=== PATIENT | male | born 1970 | race Caucasian/White ===

== ENCOUNTER 2019-07-20 08:02 | Emergency (ER) | payer SELFPAY ==
[2019-07-20] VITALS (15 sets, daily range): BP systolic 120–147; BP diastolic 72–95; PULSE 71–92; RESP 16–18; TEMP 37.1; O2SAT 94–99
--- NOTE | 2019-07-20 08:09 | ED_ITS ---
Entered by Travis Moya LPN, acting as scribe for HPI - Back Pain/Injury General: Chief Complaint: Abdominal Pain Stated Complaint: back/abd pain Time Seen by Provider: 07/20/19 08:07 Source: patient Mode of arrival: ambulatory Limitations: no limitations History of Present Illness: HPI Narrative: 49 yo male presents with c/o right lower back pain radiating to his right groin that started yesterday. He reports a BM might ease the pain some, then he becomes nauseated after a BM. He has had 2 episodes of emesis. He denies pain or burning with urination, denies hematuria. He does have h/o kidney stones on the left side, Lithotripsy x2. MD elicited complaint: back pain (right lower back) Onset (ago): day(s) (1) Quality: sharp Radiation: groin (right) Exacerbating factors: none Relieving factors: other (brief relief with BM) Context: history of kidney stones Associated symptoms: Reports nausea and vomiting; Deny chills, dysuria, fatigue, fever(s) or hematuria Review of Systems Const: Denies: fever, chills, body aches, change in appetite, fatigue or malaise ENMT: Denies: throat pain, ear pain, nasal discharge or nasal congestion Card: Denies: chest pain, edema, shortness of breath on exertion or shortness of breath when lying down Resp: Denies: shortness of breath, productive cough or non-productive cough GI: Reports: nausea and vomiting : Denies: painful urination or blood in urine Skin/Breast: Denies: rash or itching PFSH ED PFSH: Statuses (acute, chronic, etc) shown below reflect problem list status as previously entered and may not be historically accurate Medical History History of stroke (Acute) Vasectomy evaluation (Acute) Surgical History H/O lithotripsy (Acute) H/O neck surgery (Acute) History of back surgery (Acute) Hx of cholecystectomy (Acute) Family History Father , AT AGE 71 STROKE Stroke Social History Smoking and tobacco status: never smoked Alcohol intake: never Adopted: Yes Caregiver/support person: No Lives independently: Yes Marital status: / Current occupational status: employed 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 Physical Exam Const: COMMON NORMALS: no apparent distress GENERAL APPEARANCE: cooperative and comfortable ORIENTATION/CONSCIOUSNESS: Yes awake, Yes oriented to person, Yes oriented to place and Yes oriented to time HENMT: COMMON NORMALS: normocephalic, head/scalp atraumatic, hearing grossly normal bilaterally, external ears normal, EAC's normal, TM's normal bilaterally, nasal mucous membranes and turbinates normal, moist oral mucous membranes and oropharynx normal HEAD & SCALP: normocephalic and atraumatic NOSE: nasal mucous membranes and turbinates normal EXTERNAL EAR: Yes external ears normal EXTERNAL AUDITORY CANAL: EAC's normal TYMPANIC MEMBRANE: TM's normal bilaterally Eye: COMMON NORMALS: PERRL, EOMs intact bilaterally, conjunctivae normal and no scleral icterus CONJUNCTIVA: Yes conjunctivae normal PUPIL: Yes PERRL Neck/C-Spine: COMMON NORMALS: full ROM, no lymphadenopathy, supple and no JVD Lymph: LYMPHATIC: no lymphadenopathy noted and no lymphedema noted Resp: COMMON NORMALS: normal respiratory effort, no retractions, no use of accessory muscles and clear to auscultation bilaterally AUSCULTATION: clear to auscultation bilaterally Cardio: COMMON NORMALS: no JVD, regular rate, regular rhythm and no murmurs RATE: regular rate RHYTHM: regular rhythm GI: COMMON NORMALS: soft to palpation and no hepatosplenomegaly PALPATION: Yes soft, Yes tender (mild epigastric, right side abd tenderness), No guarding, No rigid and Yes no hepatosplenomegaly : BLADDER/KIDNEY EXAM: Yes CVA tenderness Back/Pelvis: GENERAL BACK: Yes CVA tenderness CVA tenderness: right Extremity: COMMON NORMALS: normal to inspection, normal capillary refill, no clubbing, cyanosis or edema, no calf tenderness and no pedal edema Neuro: SENSORIUM/ORIENTATION: Yes oriented to person, Yes oriented to place and Yes oriented to time Skin: COMMON NORMALS: no rashes or lesions noted GENERAL SKIN EXAM: no rashes or lesions noted Course Vital Signs: Vital signs: Vital Signs Temperature 98.7 F 01/11/20 08:06 Pulse Rate 80 07/20/19 12:09 Respiratory Rate 18 07/20/19 12:09 Blood Pressure 142/92 07/20/19 12:09 Pulse Oximetry 97 07/20/19 12:09 MDM - Back Pain/Injury Lab Data: Labs: Lab Results 07/20/19 07/20/19 07/20/19 Range/Units 08:15 08:15 08:50 WBC 10.1 H (4.0-10.0) 10^3/ uL RBC 5.00 (4.1-5.3) 10^6/u L Hgb 15.4 (11.7-16.6) g/dL Hct 45.1 (42.0-52.0) % MCV 90.2 (80-94) fL MCH 30.8 (28.0-34.0) pg MCHC 34.1 (30.0-36.0) g/dL RDW 12.0 L (12.1-15.1) % Plt Count 251 (130-400) 10^3/c mm MPV 9.1 (7.4-10.4) fL Neut % (Auto) 85.5 % Lymph % (Auto) 7.6 % Fountain % (Auto) 5.8 % Eos % (Auto) 0.3 % Baso % (Auto) 0.5 % Neut # (Auto) 8.7 H (1.8-7.7) 10^3/u L Lymph # (Auto) 0.8 (0.8-4.8) 10^3/u L Fountain # (Auto) 0.6 (0.2-0.9) 10^3/u L Eos # (Auto) 0.0 (0.0-0.8) 10^3/u L Baso # (Auto) 0.1 (0.0-0.1) 10^3/u L Nucleated RBC % (a uto) 0 % Nucleated RBCs # 0.0 /100WBC Sodium 134 L (136-145) mmol/L Potassium 4.3 (3.5-5.1) mmol/L Chloride 98 (98-107) mmol/L Carbon Dioxide 27 (22-29) mmol/L Anion Gap 13.3 (5-19) BUN 13 (6-20) mg/dL Creatinine 1.1 (0.7-1.2) mg/dL GFR Calculation 70.6 L (90-130) mL/min Glucose 125 H (74-109) mg/dL Calcium 10.1 H (8.6-10.0) mg/Dl Total Bilirubin 0.4 (0.15-1.2) mg/dL AST 20 (0-40) U/L ALT 13 (0-41) U/L Alkaline Phosphata se 92 (40-130) IU/L Total Protein 7.4 (6.6-8.7) g/dL Albumin 4.3 (3.5-5.2) g/dL Globulin 3.1 (1.3-4.6) g/dL Lipase 29 (13-60) U/L Urine Color Yellow (Yellow) Urine Appearance Hazy A (CLEAR) Urine pH 8 H (5-7) Ur Specific Gravit y 1.010 (1.005-1.030) Urine Protein Neg (Negative) Urine Glucose (UA) Norm (Normal) Urine Ketones Negative (Negative) Urine Occult Blood Trace H (Negative) Urine Nitrate Negative (Negative) Urine Bilirubin Neg (NEGATIVE) Prot Sulfosalicyli c Acd Negative Urine Urobilinogen Norm (Negative) mg/dL Ur Leukocyte Diamante ase Negative (Negative) Urine RBC 0-4 H (0-2) /hpf Urine WBC None (0-5) /hpf Ur Squamous Epith Cells None (0-5) Amorphous Sediment 2+ Urine Bacteria Trace (NONE) Imaging Data^: KUB: Radiologist's impression: [address] [address] XRay Report Signed Patient: Suhail Sarah Sr #: [id number] : 1970Acct#:[id number] Age/Sex: 49 / MADM Date: 07/20/19 Loc: ERRoom/Bed: Attending Dr: Ordering Provider/Ordering MD: Raj Arevalo DO Date of Service: 07/20/19 Procedure(s): XR KUB portable [id number] Accession Number(s): [id number] Report Number: [id number] PROCEDURE INFORMATION: Exam: XR Abdomen, 1 View Exam date and time: 07/20/2019 9:10 AM Age: 49 years old Clinical indication: Abdominal pain and other: Flank; Generalized; Prior surgery; Surgery date: 6+ months; Surgery type: Gastric sleeve, gallbladder; Additional info: Abd/flank pain TECHNIQUE: Imaging protocol: XR of the abdomen. Views: Frontal supine view of the abdomen. 1 View. COMPARISON: No relevant prior studies available. FINDINGS: Gastrointestinal tract: Normal. No bowel dilation. Organs: Surgical clips in the gallbladder fossa consistent with cholecystectomy. Bones/joints: Dextroscoliosis. Metallic fixation over the lumbosacral spine. XR/XR KUB portable [id number] IMPRESSION: No acute findings. Dictated By:Aaron Orellana MD CT Abd/Pel: Radiologist's impression: Patient: Suhail Sarah Sr #: [id number] : 1970Acct#:[id number] Age/Sex: 49 / MADM Date: 07/20/19 Loc: ERRoom/Bed: Attending Dr: Ordering Provider/Ordering MD: Raj Arevalo DO Date of Service: 07/20/19 Procedure(s): CT abdomen pelvis w con* [id number] Accession Number(s): [id number] Report Number: [id number] PROCEDURE INFORMATION: Exam: CT Abdomen And Pelvis With Contrast Exam date and time: 07/20/2019 10:09 AM Age: 49 years old Clinical indication: Abdominal pain; Flank; Right; Prior surgery; Surgery date: 6+ months; Surgery type: Gb, appy back; Additional info: Abd pain TECHNIQUE: Imaging protocol: Computed tomography of the abdomen and pelvis with intravenous contrast. Total DLP: 1129.33 mGy-cm Radiation optimization: All CT scans at this facility use at least one of these dose optimization techniques: automated exposure control; mA and/or kV adjustment per patient size (includes targeted exams where dose is matched to clinical indication); or iterative reconstruction. Contrast material: OMNI 300; Contrast volume: 95 ml; Contrast route: RT AC; COMPARISON: CR XR KUB portable [id number] 07/20/2019 8:58 AM FINDINGS: Liver: Normal. No mass. Gallbladder and bile ducts: Surgical clips in the gallbladder fossa consistent with cholecystectomy. Dilated 8 mm common hepatic duct with normal common bile duct. Pancreas: Normal. No ductal dilation. Spleen: Normal. No splenomegaly. Adrenals: Normal. No mass. Kidneys and ureters: 5 x 3 mm distal right obstructing ureteral stone, 4 cm proximal to the UVJ, with moderate right hydronephrosis. Stomach and bowel: Gastric sleeve surgery. Appendix: Normal appendix. Intraperitoneal space: Unremarkable. No free air. No significant fluid collection. Vasculature: Calcification of the abdominal aorta and/or iliac arteries consistent with atherosclerotic vessel disease. One or more calcified pelvic phleboliths. Lymph nodes: Unremarkable. No enlarged lymph nodes. Bladder: Unremarkable as visualized. Reproductive: Nonspecific prostate calcifications. Bones/joints: Stable postoperative changes over the lumbar spine. Soft tissues: Unremarkable. CT/CT abdomen pelvis w con* [id number] IMPRESSION: 5 x 3 mm distal right obstructing ureteral stone, 4 cm proximal to the UVJ, with moderate right hydronephrosis. Radiation Dose CTDIVOL = (mGy): DLP = 1129.33 (mGy-cm) Dictated By:Aaron Orellana MD Discharge Plan Discharge Patient Disposition: Home, Self-Care Clinical Impression: Ureterolithiasis Condition: Stable Prescriptions: [place] 5-325 mg tablet 1 tab PO Q6H PRN (Reason: pain) Qty: 20 RF: 0 Flomax 0.4 mg capsule 0.4 mg PO Q24H Qty: 14 RF: 0 Zofran 4 mg tablet 4 mg PO DAILY PRN (Reason: nausea and vomiting) 5 Days Qty: 20 RF: 0 No Action diazepam 10 mg tablet 10 mg PO ONCE PRN (Reason: Preoperatively 1 hour before vasectomy) Qty: 1 RF: 0 Discharge Orders: Discharge Order (Routine); Ordered 07/20/19 Ordered By: Raj Arevalo Referrals: Mayito Mas MD [Physician] - 4-7 days (ureterolithiasis) OUT OF AREA PROVIDERS, [Primary Care Provider] - Discharge Diet: Usual diet Discharge Activity: Resume usual activity Activity Restrictions/Additional Instructions: district branch manager will call with appointment with urology. Strain urine for stone return to the lab for analysis. Discharge Date/Time: 07/20/19 12:13 Coding Level of Care Code ED Brass Burnisher for Chg Fwd Exam Problem Focused The documentation recorded by the Griffin trevino Dani Elizabeth, LPN, accurately reflects the service I personally performed and the decisions made by me, Raj Arevalo, DO
--- NOTE | 2019-07-20 08:13 | XRR_ITS ---
PROCEDURE INFORMATION: Exam: XR Abdomen, 1 View Exam date and time: 07/20/2019 9:10 AM Age: 49 years old Clinical indication: Abdominal pain and other: Flank; Generalized; Prior surgery; Surgery date: 6+ months; Surgery type: Gastric sleeve, gallbladder; Additional info: Abd/flank pain TECHNIQUE: Imaging protocol: XR of the abdomen. Views: Frontal supine view of the abdomen. 1 View. COMPARISON: No relevant prior studies available. FINDINGS: Gastrointestinal tract: Normal. No bowel dilation. Organs: Surgical clips in the gallbladder fossa consistent with cholecystectomy. Bones/joints: Dextroscoliosis. Metallic fixation over the lumbosacral spine. XR/XR KUB portable [id number] IMPRESSION: No acute findings.
[2019-07-20] MEDS: morphine 4 mg/mL SDV 1 mL IVP ×2 (08:23→11:26)
[2019-07-20] MEDS: ondansetron 2 mg/ML SDV 2 mL 4 MG IVP (08:23)
[2019-07-20 08:24] LABS: Basophils # 0.1 10^3/uL (0.0-0.1); Basophils % 0.5 %; Eosinophils % 0.3 %; Hematocrit 45.1 % (42.0-52.0); Hemoglobin 15.4 g/dL (11.7-16.6); Lymphocytes # 0.8 10^3/uL (0.8-4.8); Lymphocytes % 7.6 %; Mean Corpuscular HGB Conc 34.1 g/dL (30.0-36.0); Mean Corpuscular Hemoglobin 30.8 pg (28.0-34.0); Mean Corpuscular Volume 90.2 fL (80-94); Mean Platelet Volume 9.1 fL (7.4-10.4); Monocytes # 0.6 10^3/uL (0.2-0.9); Monocytes % 5.8 %; Neutrophils # 8.7 10^3/uL (1.8-7.7); Neutrophils % 85.5 %; Nucleated Red Blood Cells % 0 %; Platelet Count 251 10^3/cmm (130-400); White Blood Count 10.1 10^3/uL (4.0-10.0)
[2019-07-20] MEDS: sodium chloride 0.9% 1,000 ML 999 ML IV (08:24)
[2019-07-20 08:43] LABS: Alanine Aminotransferase 13 U/L (0-41); Albumin Level 4.3 g/dL (3.5-5.2); Alkaline Phosphatase 92 IU/L (40-130); Anion Gap 13.3 (5-19); Aspartate Amino Transferase 20 U/L (0-40); Blood Urea Nitrogen 13 mg/dL (6-20); Calcium 10.1 mg/Dl (8.6-10.0); Carbon Dioxide 27 mmol/L (22-29); Chloride 98 mmol/L (98-107); Globulin 3.1 g/dL (1.3-4.6); Glomerular Filtration Rate 70.6 mL/min (90-130); Glucose 125 mg/dL (74-109); Lipase 29 U/L (13-60); Potassium 4.3 mmol/L (3.5-5.1); Sodium 134 mmol/L (136-145); Total Bilirubin 0.4 mg/dL (0.15-1.2); Total Protein 7.4 g/dL (6.6-8.7)
[2019-07-20 09:19] LABS: Add Urine Microscopic? YES; Bilirubin Urine Neg (NEGATIVE); Blood Urine Trace (Negative); Glucose Urine UA Norm (Normal); Ketones Urine Negative (Negative); Leukocyte Esterase Urine Negative (Negative); Nitrate Urine Negative (Negative); Protein Urine Neg (Negative); Sulfosalicylic Acid Urine Negative; Urine Appearance Hazy (CLEAR); Urine Color Yellow (Yellow); Urobilinogen Urine Norm (Negative); pH Urine 8 (5-7)
[2019-07-20 09:20] LABS: Amorphous Sediment Urine 2+; Bacteria Urine TRACE; RBC Urine 0-4 /hpf (0-2)
[2019-07-20 09:21] LABS: Add Urine Culture? No
--- NOTE | 2019-07-20 09:46 | CTR_ITS ---
PROCEDURE INFORMATION: Exam: CT Abdomen And Pelvis With Contrast Exam date and time: 07/20/2019 10:09 AM Age: 49 years old Clinical indication: Abdominal pain; Flank; Right; Prior surgery; Surgery date: 6+ months; Surgery type: Gb, appy back; Additional info: Abd pain TECHNIQUE: Imaging protocol: Computed tomography of the abdomen and pelvis with intravenous contrast. Total DLP: 1129.33 mGy-cm Radiation optimization: All CT scans at this facility use at least one of these dose optimization techniques: automated exposure control; mA and/or kV adjustment per patient size (includes targeted exams where dose is matched to clinical indication); or iterative reconstruction. Contrast material: OMNI 300; Contrast volume: 95 ml; Contrast route: RT AC; COMPARISON: CR XR KUB portable [id number] 07/20/2019 8:58 AM FINDINGS: Liver: Normal. No mass. Gallbladder and bile ducts: Surgical clips in the gallbladder fossa consistent with cholecystectomy. Dilated 8 mm common hepatic duct with normal common bile duct. Pancreas: Normal. No ductal dilation. Spleen: Normal. No splenomegaly. Adrenals: Normal. No mass. Kidneys and ureters: 5 x 3 mm distal right obstructing ureteral stone, 4 cm proximal to the UVJ, with moderate right hydronephrosis. Stomach and bowel: Gastric sleeve surgery. Appendix: Normal appendix. Intraperitoneal space: Unremarkable. No free air. No significant fluid collection. Vasculature: Calcification of the abdominal aorta and/or iliac arteries consistent with atherosclerotic vessel disease. One or more calcified pelvic phleboliths. Lymph nodes: Unremarkable. No enlarged lymph nodes. Bladder: Unremarkable as visualized. Reproductive: Nonspecific prostate calcifications. Bones/joints: Stable postoperative changes over the lumbar spine. Soft tissues: Unremarkable. CT/CT abdomen pelvis w con* [id number] IMPRESSION: 5 x 3 mm distal right obstructing ureteral stone, 4 cm proximal to the UVJ, with moderate right hydronephrosis. Radiation Dose CTDIVOL = (mGy): DLP = 1129.33 (mGy-cm)
[2019-07-20] MEDS: iohexol 300 mg/mL 100 mL Btl IV (11:22)
--- NOTE | 2019-07-22 12:10 | DCPLANNER ---
payroll accounting manager had message to schedule a follow up appointment for patient with Dr. Mas. payroll accounting manager called the office of Dr. Mas, spoke with Ligia, gave clinic patients information. payroll accounting manager was told that patients information would be printed and given to Micaela. Clinic will call patient with appointment information. payroll accounting manager will call for appointment information.
--- NOTE | 2019-07-23 14:50 | DCPLANNER ---
A follow up appointment had been scheduled for patient for 07.22.[address] Mas. Patient did attend the appointment.
== END 2019-07-20 12:13 | disposition home or self-care (01) ==
PROVIDERS: Emergency Provider Family Medicine
DX: N20.1 Calculus of ureter (principal); Z86.73 Personal history of transient ischemic attack (TIA), and cerebral infarction without residual deficits
CPT/HCPCS: 74018; 74177; 80053; 81003; 83690; 85025; 96360; 96374; 96375; 99282; A9270; J2270; J2405; J7030; Q9967

== ENCOUNTER 2019-07-22 14:49 | Outpatient (CLI) | payer SELFPAY ==
--- NOTE | 2019-07-22 15:11 | XR_ITS ---
WS: [id number] KUB, 07/22/2019 Clinical Data: ureterolithiasis Comparison: KUB, 07/20/2019. Findings: No abnormal intraabdominal masses or calcifications are seen. There is no dilatated small bowel or ev idence of obstruction. There are clips in right upper quadrant from a cholecystectomy. The patient has had a fusion of L5-S1 . XR/XR KUB [id number] Impression: Negative KUB.
== END 2019-07-22 14:50 | disposition home or self-care (01) ==
LOC: RAD 14:54
PROVIDERS: Visit Provider Urology
DX: N20.1 Calculus of ureter (principal)
CPT/HCPCS: 74018; 81001

== ENCOUNTER 2019-08-05 07:27 | Outpatient (CLI) | payer SELFPAY ==
--- NOTE | 2019-08-05 07:30 | XRR_ITS ---
PROCEDURE INFORMATION: Exam: XR Abdomen, 1 View Exam date and time: 08/05/2019 7:43 AM Age: 49 years old Clinical indication: Condition or disease; Other: Ureterolithiasis; Prior surgery; Surgery date: 6+ months; Surgery type: Gastric sleeve, gallbladder TECHNIQUE: Imaging protocol: XR of the abdomen. Views: Frontal supine view of the abdomen. 1 View. COMPARISON: CR XR KUB [id number] 07/22/2019 3:50 PM FINDINGS: Gastrointestinal tract: Unremarkable. No bowel dilation. Intraperitoneal space: Medial LEFT upper quadrant abdominal surgical stapling. Organs: The gallbladder is likely surgically absent, with metallic clips overlying the gallbladder fossa. Bones/joints: Upper sacral spinal anterior fixation hardware. Right lateral acetabular mild marginal hypertrophy. XR/XR KUB [id number] IMPRESSION: 1. Prior cholecystectomy. 2. LEFT upper quadrant abdominal postsurgical changes. 3. No acute abdominal or pelvic abnormality identified.
== END 2019-08-05 07:28 | disposition home or self-care (01) ==
LOC: RAD 07:30
PROVIDERS: PCP Urology; Visit Provider Urology
DX: N20.1 Calculus of ureter (principal); Z98.84 Bariatric surgery status; Z90.49 Acquired absence of other specified parts of digestive tract
CPT/HCPCS: 74018; 81001

== ENCOUNTER 2019-08-22 07:05 | Outpatient (CLI) | payer SELFPAY ==
--- NOTE | 2019-08-22 07:15 | XRR_ITS ---
PROCEDURE INFORMATION: Exam: XR Abdomen, 1 View Exam date and time: 08/22/2019 7:21 AM Age: 49 years old Clinical indication: Condition or disease; Kidney or ureter condition; Calculus (stone) in kidney; Prior surgery; Surgery type: Lspine, gastric sleeve; Additional info: Renal calculi follow up TECHNIQUE: Imaging protocol: XR of the abdomen. Views: Frontal supine view of the abdomen. 1 View. COMPARISON: XR ABDOMEN 08/05/2019 7:[address] ABDOMEN/PELVIS 07/20/2019 11:34 AM XR ABDOMEN 07/20/2019 8:58:49 AM FINDINGS: Gastrointestinal tract: No dilated gas-filled loops of bowel. Intraperitoneal space: When comparing the different studies there appears to be a calculus in the distal right ureter. The calculus measures approximately 6 mm x 2.5 mm in size, not accounting for magnification. Organs: Prior cholecystectomy. Bones/joints: Prior anterior fusion at L5-S1. XR/XR KUB 57475 IMPRESSION: Distal right ureteral calculus.
== END 2019-08-22 07:06 | disposition home or self-care (01) ==
PROVIDERS: PCP Urology; Visit Provider Urology
DX: N20.0 Calculus of kidney (principal); N20.1 Calculus of ureter
CPT/HCPCS: 74018; 81001

== ENCOUNTER 2019-09-09 06:43 | Outpatient (CLI) | payer SELFPAY ==
--- NOTE | 2019-09-09 07:15 | XR_ITS ---
WS: [id number] XR KUB [id number] REASON FOR EXAM: RIGHT URETERAL CALCULUS FINDINGS: A calcified density is seen in the region of the distal right ureter. Weren't sure if this is a stone or soft tissue calcification. The kidneys do not appear to be grossly dilated. There is evidence of fusion of the L5-S1 junction inferiorly. XR/XR KUB 68129 IMPRESSION: Calcification unchanged in the region of the distal right ureter. Not sure if t his is a renal calculus or soft tissue calcification.
== END 2019-09-09 06:44 | disposition home or self-care (01) ==
PROVIDERS: PCP Urology; Visit Provider Urology
DX: N20.1 Calculus of ureter (principal)
CPT/HCPCS: 74018; 81001

== ENCOUNTER 2019-09-20 09:11 | Outpatient (CLI) | payer SELFPAY ==
--- NOTE | 2019-09-20 09:15 | XR_ITS ---
WS: [id number] KUB, 09/20/2019 Clinical Data: ureteral calculus Comparison: KUB, 09/09/2019. Findings: There is a small calcification in the right side of the true pelvis which may represent a distal uret eral stone. No renal calculi are seen. The patient has had an L5-S1 fusion. XR/XR KUB 30760 Impression: No change in possible distal right ureteral calculus.
== END 2019-09-20 09:12 | disposition home or self-care (01) ==
PROVIDERS: PCP Urology; Visit Provider Urology
DX: N20.1 Calculus of ureter (principal)
CPT/HCPCS: 74018; 81001

== ENCOUNTER 2019-09-27 09:55 | Day surgery (SDC) | payer SELFPAY ==
[2019-09-26 12:12] VITALS: BMI 29.5
[2019-09-27] VITALS (8 sets, daily range): BP systolic 137–162; BP diastolic 84–98; PULSE 74–90; RESP 16–22; TEMP 36.1–36.8; O2SAT 95–98
--- NOTE | 2019-09-27 10:17 | XR_ITS ---
WS: [id number] XR KUB [id number] REASON FOR EXAM: Preop right ureteroscopy, right distal ureteral stone FINDINGS: The small calcified density is again seen in the region of the right distal ureter area and is again consistent with a possible stones. Both kidneys appear to be of normal size. There were no stones seen in either kidney today. There is anterior fusion of the L5-S1 area. XR/XR KUB 55191 IMPRESSION: Continued suspicious of a stone in the region of the distal right ureter.
--- NOTE | 2019-09-27 11:20 | P.ANESASSM_ITS ---
Pre-Anesthetic Assessment Pre-Anesthetic Assessment: Height/Weight: Height 1.75 m Weight 90.718 kg Preop Diagnosis: Refractory right distal ureteral stone, desires permanent sterility Proposed Procedure: Operation Date: 09/27/19 12:00 Proposed Procedures p Cystoscopy 13580 [id number](Not Applicable) - MD diana Schuster Retrograde Pyelogram(Not Applicable) - MD diana Schuster Flexible Ureteroscopy(Not Applicable) - MD diana Schuster Laser Lithotripsy(Not Applicable) - MD diana Schuster Ureteral Stent Placement(Not Applicable) - MD diana Schuster Vasectomy(Not Applicable) - Mayito Mas MD Last intake: Intake Last Liquid Date 09/27/19 Last Liquid Time 09:00 Last Solid Date 09/26/19 Last Solid Time 18:00 Social: Packs per day: 2ppd Pack years: 40 Comment: quit 16y ago Exam: Pre-Anes Outpt Exam: alert, oriented x 3, clear to auscultation bilaterally and regular rate & rhythm Airway: Submandibular: WNL Cervical ROM: WNL MP: 2 Pulmonary: Pulmonary: Sleep apnea : Comments: right ureteral stone GI: Comments: s/p sleevegastrectomy 07/28 lost 70 lbs Musc/skel: Musc/skel: Lower Back Pain Neuropsych: Neuropsych: Anxiety and Depression Anesthetic Plan: ASA status: 2 Anesthesia: General PFSH Anesthesia PFSH: Social History Smoking and tobacco status: former smoker Alcohol intake: never Adopted: No Caregiver/support person: No Lives independently: Yes Marital status: / Current occupational status: employed 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
[2019-09-27] MEDS: sodium chloride 0.9% 1,000 ML 30 ML IV (11:56)
--- NOTE | 2019-09-27 12:47 | SC_ITS ---
WS: [id number] C-arm [place] for Urology REASON FOR EXAM: retrograde FINDINGS: Partial retrograde study was performed shows a defect in the distal ureter. In the last pro jection a stent is seen extending through the kidney to the bladder good position. SC/C-arm [facility] for Urology IMPRESSION: Stent placement satisfactory in the right kidney ureter and bladder.
[2019-09-27] MEDS: iohexol 300 mg/mL 50 mL Btl 25 ML XX (13:10)
--- NOTE | 2019-09-27 13:40 | W.PM.OPSUD ---
Surgery/Procedure H&P Update DATE OF PROCEDURE: September 27, 2019 DATE H&P PERFORMED: 09/20/19 H&P UPDATE INFORMATION: I have reviewed H&P completed within last 30 days, I have examined patient prior to procedure and No changes to prior documentation CHANGES TO PREVIOUS DOCUMENTATION: Examination and interview conducted prior to surgery. PREOP DIAGNOSIS: Refractory right distal ureteral stone, desires permanent sterility PLANNED PROCEDURE: Operation Date: 09/27/19 12:00 Proposed Procedures p Cystoscopy [id number](Not Applicable) - Mayito Mas MD s Retrograde Pyelogram(Not Applicable) - Mayito Mas MD s Flexible Ureteroscopy(Not Applicable) - Mayito Mas MD s Laser Lithotripsy(Not Applicable) - Mayito Mas MD s Ureteral Stent Placement(Not Applicable) - Mayito Mas MD s Vasectomy(Not Applicable) - Mayito Mas MD
--- NOTE | 2019-09-27 13:44 | SUR.PHASEI ---
0179 PATIENT TO PACU AT THIS TIME FROM OR. RR EVEN AND UNLABORED. ORAL AIRWAY IN PLACE, REMOVED BY ANESTHESIA. SPO2 98% ON SIMPLE MASK AT 8L.
--- NOTE | 2019-09-27 13:46 | P.OP_ITS ---
Operative Report Date of procedure: September 27, 2019 Pre-op Diagnosis: Refractory right distal ureteral stone, desires permanent sterility Post-op diagnosis: same Procedure Done: 1. Cystoscopy, right ureteroscopy, laser lithotripsy, stent. 2. Right retrograde ureteropyelogram Implants: Right ureteral stent (4.7 Hungarian by 26 cm double-pigtail with string attached distally) Pathology: Distal ureteral stone fragments Surgeon: Chace Anesthesia: General Estimated blood loss: Minimal Complications: None Findings: stone in the expected position. Could not withdraw intact and for that reason it was fragmented with laser lithotripsy. 4.7 x 26 cm double-pigtail stent with string attached distally was left indwelling at the completion of the procedure. Condition: stable Disposition: PACU Brief History: Suhail is a very pleasant 49-year-old white male recently diagnosed with a right proximal ureteral stone that over time progressively advanced to the right distal ureter but eventually stalled at the right ureteral orifice. He ultimately elected to proceed with endoscopic treatment of the stone. We had talked about doing a vasectomy under the same anesthesia but on the day of the procedure changed plans due to concerns about sparing resources such that we could do it later date in my office with pain medication and anxiolytics Procedure: After routine preoperative evaluation examination and obtaining of informed consent he was taken to the operating suite on 09/27/2019 where general anesthesia was administered without difficulty after appropriate timeout was performed, SCDs confirmed to be functioning, preoperative antibiotics administered, beta-fabrice protocol confirmed. Prepped and draped in the usual sterile fashion in dorsolithotomy position pain careful attention to avoiding pressure points. 21 Hungarian cystoscope with 30 degree lens was introduced into the urethral meatus and advanced into the bladder videoscopy. Bladder was systematically examined with only abnormality being fairly intense inflammatory changes of the right intramural tunnel. No stone was seen. An 8 Hungarian cone-tipped catheter was intubated into the right ureteral orifice and a right retrograde ureteropyelogram was performed that demonstrated a filling defect consistent with the previously identified stone in the right distal ureter. It was not impacted. A flexible tip guidewire was then advanced up the right ureter curling in the area of the renal pelvis The wire was secured to the drapes as a safety wire and a 7 Hungarian offset semirigid ureteroscope was advanced next to the guidewire up the ureter where the stone was encountered in its expected position. It was secured and grasping forceps but could not be easily withdrawn through the inflamed ureteral orifice and for that reason was fragmented with a 365 ?m homing laser fiber into small enough pieces that were then removed with a combination of grasping forceps and basket. On final inspection all the stone fragments were removed from the ureter and these were then flush free from the bladder through the cystoscope. Because of the edema associated with the stone it was decided to leave a stent in place. The cystoscope was then backloaded over the guidewire and a 4.7 Hungarian by 26 cm double-pigtail stent was advanced over the guidewire through the cystoscope into appropriate position as confirmed via fluoroscopy and cystoscopy. STRING was left attached distally, shortened, and not secured. He tolerated the procedure well without complications and was awakened in the operating room and returned to the recovery in stable condition PLANS: 1. Follow-up early next week for stent removal with string or cystoscopy if the string retracts. 2. He can remove the string himself if he wants by grasping the string and easily withdrawing it. If that is the case I will see him back in 6 months with a KUB. 3. Cover with all Septra DS 1 p.o. twice daily for foreign body protection with string protruding.
--- NOTE | 2019-09-27 14:12 | SUR.PHASEI ---
1409 PATIENT TO OPS AT THIS TIME. DENIES PAIN. A/OX3. RR EVEN AND UNLABORED.
== END 2019-09-27 14:45 | disposition home or self-care (01) ==
PROVIDERS: PCP Urology; Visit Provider Urology
PROC: 0TJB8ZZ Inspection of Bladder, Via Natural or Artificial Opening Endoscopic (ICD-10-PCS; CPT 52000; principal; 2019-09-27 12:00)
PROC: (CPT 74420; 2019-09-27 12:00)
PROC: 0TJ98ZZ Inspection of Ureter, Via Natural or Artificial Opening Endoscopic (ICD-10-PCS; CPT 52351; 2019-09-27 12:00)
PROC: (CPT 52356; 2019-09-27 12:00)
PROC: (CPT 50605; 2019-09-27 12:00)
DX: N20.1 Calculus of ureter (principal); Z87.891 Personal history of nicotine dependence; G47.30 Sleep apnea, unspecified; Z82.49 Family history of ischemic heart disease and other diseases of the circulatory system; Z82.3 Family history of stroke
CPT/HCPCS: 52356; 12345; 74018; 76000; 82365; 88300; C1725; C2625; J0690; J7030; Q9967

== ENCOUNTER 2023-11-01 14:54 | Outpatient (CLI) | payer MEDICARE, SELFPAY ==
--- NOTE | 2023-11-01 15:01 | MR_ITS ---
WS: [id number] MRI HEAD WITH CONTRAST WITH ATTENTION TO THE INTERNAL AUDITORY CANALS TECHNIQUE: Sagittal T1, T2 axial, T2 axial flair, axial susceptibility weighted imaging, axial diffus ion weighted images, and coronal T2 images were obtained. Pre and post T1 axial and post T1 coronal i mages. ADC and FSPGR images. Post gadolinium images with attention to the internal auditory canals. A xial fiesta imaging. 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 Mild supratentorial white matter herman es nonspecific in a patient of this age but can be seen with hypertension, diabetes, and small vessel disease. Pericallosal lesion in the RIGHT periventricular white matter. Demyelinating disease is an additional less likely consideration. Normal posterior fossa. Normal vascular flow voids at the skull base. No extra-axial fluid collections. No evidence of mass or mass effect. Paranasal sinuses are we ll aerated. Mastoid air cells are well aerated. No hemosiderin on the susceptibility weighted images. Normal optic chiasm and pituitary infundibulum. Proximal 7th and 8th cranial nerves are normal in appearance. Normal trigeminal nerve root entry zone s. No evidence of enhancing IAC or CP angle mass. Normal trigeminal nerve root entry zones. No abnorm al gadolinium enhancement. Normal dural venous sinuses. No other suspicious findings. IMPRESSION: 1. No evidence of restricted diffusion to suggest acute ischemia. 2. No evidence of enhancing IAC or CP angle mass. 3. Normal trigeminal nerve entry zones. 4. Mastoid air cells are well aerated. 5. Mild supratentorial white matter changes nonspecific in a patient this age but can be seen with h ypertension, diabetes and small vessel disease. Demyelinating disease is an additional less likely co nsideration. Single RIGHT pericallosal lesion. 6. Mild parenchymal volume loss more prominent in the frontal lobes. 7. No hemosiderin on the susceptibly weighted images.
[2023-11-01] MEDS: gadobenate dimeglumine 20 mL vial IV (15:53)
== END 2023-11-01 14:55 | disposition home or self-care (01) ==
LOC: RAD 14:57
PROVIDERS: Visit Provider Otolaryngology
DX: H90.3 Sensorineural hearing loss, bilateral (principal); H93.12 Tinnitus, left ear; G31.89 Other specified degenerative diseases of nervous system
CPT/HCPCS: 70553; A9577

== ENCOUNTER 2024-04-10 09:31 | Outpatient (CLI) | payer MEDICARE, SELFPAY ==
--- NOTE | 2024-04-10 09:33 | USCV_ITS ---
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 CONCLUSIONS Normal resting ABIs bilaterally of 1.1. No significant arterial obstruction, based on the above findings Dr Mariella Jesus MD [facility] (Electronically Signed) Final Date: 10 April 2024 23:17 S
== END 2024-04-10 09:32 | disposition home or self-care (01) ==
LOC: RAD 09:32
PROVIDERS: Visit Provider Nurse Practitioner Family
DX: I73.9 Peripheral vascular disease, unspecified (principal)
CPT/HCPCS: 93922